=== PATIENT | male | born 1960 | race Caucasian/White ===

== ENCOUNTER 2022-01-22 14:25 | Emergency (ER) | payer MEDICAID ==
[~2022-01-22] VITALS: Ht 180.3 cm; Wt 94.4 kg
[2022-01-22 15:06] VITALS: BP 120/80
[2022-01-22] MEDS ORDERED: CEPHALEXIN MONOHYDRATE 500 MG CAPSULE PO ONE (15:30)
[2022-01-22] MEDS ORDERED: POVIDONE-IODINE 10% 15 ML SOLUTION UD TP ONE (15:30)
[2022-01-22] MEDS ORDERED: LIDOCAINE 1% 10 ML VIAL IM ONE (15:30)
[2022-01-22] MEDS ORDERED: IBUPROFEN 800 MG TABLET PO ONE (15:30)
[2022-01-22] MEDS ORDERED: BACITRACIN 0.9 GM PACKET OINTMENT TP ONE (16:15)
[2022-01-22] MEDS ORDERED: CEPH-558 PO ×2 (16:19→20:12)
== END 2022-01-22 16:59 | disposition home or self-care (01) ==
LOC: EMS 14:25
DX: L03.031 Cellulitis of right toe (principal); L60.0 Ingrowing nail; F17.210 Nicotine dependence, cigarettes, uncomplicated
CPT/HCPCS: 10060; 99283; 99406; J3490